=== PATIENT | male | born 1985 | race Caucasian/White ===

== ENCOUNTER 2019-12-12 14:05 | Emergency (ER) | payer SELFPAY ==
[2019-12-12 14:12] VITALS: BP 136/101
--- OUTSIDE RECORDS SUMMARY | 2019-12-12 14:12 | XMS REPORT ---
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
[2019-12-12] MEDS ORDERED: LIDOCAINE 1% INJ 20 ML 20 ML VIAL ONE (14:15)
[2019-12-12] MEDS ORDERED: LIDOCAINE/EPI 2% 1:100,00 (XYLOCAINE) 20 ML VIAL ONE (14:16)
[2019-12-12] MEDS ORDERED: SULF1TAB35 PO (14:18)
--- NOTE | 2019-12-12 14:19 | ED Upper Extremity ---
General Chief Complaint: Laceration Stated Complaint: HAND LACERATION Source: patient Exam Limitations: no limitations History of Present Illness Date Seen by Provider: Dec 12, 2019 Time Seen by Provider: 14:06 Initial Comments Patient walks in the ER with chief complaint of laceration to his right hand caused by a knife he was messing with. He says it happened about 30 mils prior to arrival. He get stop bleeding with some gauze. He says he had a tetanus shot about one to 2 years ago when he cut open his face. No use of blood thinners. No other injuries. No history of hand surgery. No loss of range of motion to his hand. No alcohol use recently. Last use of methamphetamine in the past 1-2 days. Allergies and Home Medications Allergies Coded Allergies: Penicillins (Verified Allergy, Unknown, rash, 12/12/19) Home Medications Sulfamethoxazole/Trimethoprim 1 Each Tablet, 1 EACH PO BID Prescribed by: SAHIL OH on 12/12/19 1418 Patient Home Medication List Home Medication List Reviewed: Yes Review of Systems Constitutional: No chills, No diaphoresis EENTM: No ear discharge, No ear pain Respiratory: No cough, No short of breath Cardiovascular: No chest pain, No edema Gastrointestinal: No abdominal pain, No nausea Past Uokyldz-Dlswmn-Efrwsh Hx Patient Social History Alcohol Use: Rarely Uses Recreational Drug Use: Yes Drug of Choice: Meth , cannabis Smoking Status: Current Everyday Smoker Type Used: Cigarettes Physical Exam Vital Signs Vital Signs - First Documented 12/12/19 14:12 Temp 37.8 Pulse 120 Resp 20 B/P (MAP) 136/101 (113) Pulse Ox 100 Capillary Refill : Height, Weight, BMI Height: '" Weight: lbs. oz. kg; BMI Method: General Appearance: mild distress, other (disheveled) HEENT: PERRL/EOMI, pharynx normal Neck: full range of motion, normal inspection Cardiovascular: normal peripheral pulses, regular rate, rhythm Respiratory: no respiratory distress, no accessory muscle use Wrist: Yes normal inspection, Yes non-tender, Yes no evidence of injury, Yes normal ROM Hand: normal ROM, Right, swelling (simple, linear laceration 4 cm long into the subcutaneous tissue on the palmar hand between the third and fourth digit running proximally. Hemostatic.) Neurologic/Tendon: normal sensation, normal motor functions, normal tendon functions, responds to pain, no evidence tendon injury Neurologic/Psychiatric: alert, oriented x 3 Skin: normal color, warm/dry Procedures/Interventions Wound Location: Upper Extremities Other Wound Location Palmar right hand between the third and fourth digit Wound Length (cm): 4 Wound's Depth, Shape: superficial (1-1/2 cm), linear, sub Q (2 and half centimeters) Wound Explored: no foreign body removed Irrigated w/ Saline (ccs): 150 Betadine Prep?: Yes Anesthesia: Lidocaine w/ Epi Volume Anesthetic (ccs): 5 Wound Debrided: minimal Suture: Ethlion Suture Size: 3-0 Number of Sutures: 4 Sterile Dressing Applied?: Yes Progress Sealed with triple antibiotic ointment and dressed with a sterile gauze dressing. Patient tolerated the procedure well. Progress/Results/Core Measures Results/Orders My Orders Orders - SAHIL OH Lidocaine 1% Inj 20 Ml (Xylocaine 1% Inj (12/12/19 14:15) Lidocaine/Epi 2% 1:100,000 (Xylocaine/Ep (12/12/19 14:16) Lidocaine/Epi 2% 1:100,000 (Xylocaine/Ep (12/12/19 14:30) Vital Signs/I&O 12/12/19 14:12 Temp 37.8 Pulse 120 Resp 20 B/P (MAP) 136/101 (113) Pulse Ox 100 Progress Progress Note : Time: 14:16 Progress Note Clean hand thoroughly with chlorhexidine and alcohol and plan to suture closed. We'll put him on antibiotics for 5 days. Departure Impression Primary Impression: Laceration of right hand without complication, excluding fingers Qualified Codes: S61.411A - Laceration without foreign body of right hand, initial encounter Disposition: 01 HOME, SELF-CARE Condition: Improved Departure-Patient Inst. Decision time for Depature: 14:45 Referrals: NO,LOCAL PHYSICIAN (PCP/Family) Primary Care Physician Patient Instructions: Laceration Repair With Stitches (DC) Add. Discharge Instructions: Keep the hand clean with soap and water. Rest your hand for the first 3-4 days to reduce the risk of infection and bleeding. Change the dressing daily or more often if it becomes soiled. Which the Bactrim one tablet with food twice a day to prevent infection. If you have increasing swelling, redness, pain or discharge from the wound then you need to have it seen by Tylenol 1000 mg every 8 hours as needed for pain. Ibuprofen 800 mg every 8 hours as needed for pain. If you have bleeding apply direct pressure over the wound and elevated above the level of your heart for 40 minutes. If that does not stop the bleeding then you may return to the ER. All discharge instructions reviewed with patient and/or family. Voiced und erstanding. Scripts Sulfamethoxazole/Trimethoprim (Bactrim Ds Tablet) 1 Each Tablet 1 EACH PO BID for 5 Days, #10 TAB 0 Refills Prov: SAHIL OH 12/12/19 SAHIL OH Dec 12, 2019 14:19
[2019-12-12] MEDS ORDERED: LIDOCAINE/EPI 2% 1:100,00 (XYLOCAINE) 20 ML VIAL INJ ONE (14:30)
== END 2019-12-12 15:05 | disposition home or self-care (01) ==
LOC: ER FS 14:07
DX: S61.411A Laceration without foreign body of right hand, initial encounter (principal); F17.210 Nicotine dependence, cigarettes, uncomplicated; Z88.0 Allergy status to penicillin; W26.0XXA Contact with knife, initial encounter